=== PATIENT | female | born 1970 | race Caucasian/White ===

== ENCOUNTER → 2017-11-30 | Outpatient (CLI) | payer OTHER ==
[~2017-11-30] MED LIST: ASPIRIN 32325 MG/TAB PO; ASPIRIN 81M81 MG/TA2 PO; FISH OIL500 MG PO; LIPITOR 80MG80 MG PO; LOPRESSOR 550 MG/TAB PO; MOTRIN 800800 MG/TAB PO; PLAVIX 75MG TAB75 MG PO; TOPROL XL 25MG25 MG PO; VITAMIN D1000 IU PO; VITAMINC1000TA PO
== END ==
LOC: MC.RAD 11:40
DX: Z12.31 Encounter for screening mammogram for malignant neoplasm of breast (principal)

== ENCOUNTER 2021-08-08 06:27 | Day surgery (SDC) | payer OTHER ==
[~2021-08-08] VITALS: Ht 167.6 cm; Wt 86.1 kg
[2021-08-08] MEDS ORDERED: ASPIRIN 81M81 MG/TA2 PO (06:39)
[2021-08-08 07:01] VITALS: BP 151/99; PULSE 74; TEMP 96.5
[2021-08-08 08:20] VITALS: BP 118/92; PULSE 67; TEMP 97.2
[2021-08-08 08:35] VITALS: BP 121/92; PULSE 58
[2021-08-08 08:50] VITALS: BP 132/88; PULSE 49
--- NOTE | 2021-08-08 09:27 | NUR ---
0820- Pt returns from endo procedure via cart and RN assist to [facility] . Pt ambulates from cart to recliner with RN assist. Monitors on and alarms set. Call light within reach. Report received from ISHAN Miguel. Pt alert and oriented. Pt requests tea and muffin. Pt denies any pain or nausea. 0835- Pt taking food and drink well. No complications. 0850- Discharge instructions given to pt. All questions answered to pt and husbands satisfaction. Handed to pt are a thank you card and discharge information. 0915- Pt transferred out of the hospital via wheelchair and RN assist, to private vehicle driven by .
== END 2021-08-08 09:55 | disposition home or self-care (01) ==
LOC: SDCO 06:27
DX: Z12.11 Encounter for screening for malignant neoplasm of colon (principal); I25.10 Atherosclerotic heart disease of native coronary artery without angina pectoris; E78.5 Hyperlipidemia, unspecified; G47.33 Obstructive sleep apnea (adult) (pediatric); J44.9 Chronic obstructive pulmonary disease, unspecified; I10 Essential (primary) hypertension; F17.290 Nicotine dependence, other tobacco product, uncomplicated; Z79.82 Long term (current) use of aspirin; Z95.1 Presence of aortocoronary bypass graft; Z99.89 Dependence on other enabling machines and devices; Z79.899 Other long term (current) drug therapy; Z80.0 Family history of malignant neoplasm of digestive organs
CPT/HCPCS: J2704; J7030